=== PATIENT | male | born 1985 | race Caucasian/White ===

== ENCOUNTER 2021-06-12 22:47 | Emergency (ER) | payer OTHER ==
--- NOTE | 2021-06-12 23:28 | NUR ---
PT TO CT AT THIS TIME
[2021-06-13 00:55] VITALS: BP 146/90
--- NOTE | 2021-06-13 00:56 | NUR ---
PT DC WITH [facility] AT THIS TIME, STEADY GAIT NOTED
== END 2021-06-13 00:57 ==
LOC: ED 23:00
DX: S00.83XA Contusion of other part of head, initial encounter (principal); S09.90XA Unspecified injury of head, initial encounter; F17.210 Nicotine dependence, cigarettes, uncomplicated; X58.XXXA Exposure to other specified factors, initial encounter; Y93.89 Activity, other specified; Y92.89 Other specified places as the place of occurrence of the external cause; Y99.8 Other external cause status
CPT/HCPCS: 70450; 70486; 99285; 99406